=== PATIENT | female | born 1965 | race African-American/Black ===

== ENCOUNTER 2019-03-03 07:20 | Day surgery (SDC) | payer BC ==
[2019-02-21 16:04] VITALS: BMI 28.8
[2019-03-03 09:25] VITALS: PULSE 71
[2019-03-03 09:50] VITALS: BP 113/65; TEMP 98
--- NOTE | 2019-03-07 13:44 | PATH ---
Surgical Pathology Report Patient Name: RITU VALENTIN [facility]. Rec. #: [id number] /Age/Gender: 1965 (Age: 53) / F Account: [id number] Location: [facility] Taken: 03/03/2019 Received: 03/03/2019 Reported: 03/07/2019 Physicians: Dontrell Cardenas M.D. Specimen(s) Received A: DUODENUM B: ANTRUM C: ESOPHAGUS Clinical History GERD Postoperative diagnosis: Gastritis Final Diagnosis A. DUODENUM, BIOPSY: DUODENAL MUCOSA WITH NO PATHOLOGIC FINDINGS. B. ANTRUM, BIOPSY: MILD CHRONIC GASTRITIS. IMMUNOSTAIN IS NEGATIVE FOR H. PYLORI ORGANISMS. C. ESOPHAGUS, BIOPSY: ESOPHAGEAL (SQUAMOUS) MUCOSA WITH NO PATHOLOGIC FINDINGS. NO COLUMNAR EPITHELIUM/INTESTINAL METAPLASIA IS IDENTIFIED. Electronically Signed Katie oWod M.D. Gross Description A. Received in formalin, labeled "duodenum" are 2 braun, irregular portions of soft tissue averaging 0.3 cm. in greatest dimension. The specimens are submitted in toto in one cassette. B. Received in formalin, labeled "antrum" are 2 braun, irregular portions of soft tissue averaging 0.3 cm. in greatest dimension. The specimens are submitted in toto in one cassette. C. Received in formalin, labeled "esophagus" is a braun, irregular portion of soft tissue measuring 0.4 cm. in greatest dimension. The specimen is submitted in toto in one cassette. 03/04/2019 saudi03/04/2019
== END 2019-03-03 10:15 | disposition home or self-care (01) ==
LOC: FASU-ENDO 07:20
PROVIDERS: ATTEND Internal Medicine Gastroenterology
PROC: 0DB68ZX Excision of Stomach, Via Natural or Artificial Opening Endoscopic, Diagnostic (ICD-10-PCS; 2019-03-03)
PROC: 0DB58ZX Excision of Esophagus, Via Natural or Artificial Opening Endoscopic, Diagnostic (ICD-10-PCS; 2019-03-03)
PROC: 0DB98ZX Excision of Duodenum, Via Natural or Artificial Opening Endoscopic, Diagnostic (ICD-10-PCS; principal; 2019-03-03 08:52)
DX: K29.50 Unspecified chronic gastritis without bleeding (principal); R10.13 Epigastric pain
CPT/HCPCS: 88305-TC; 88342-TC